=== PATIENT | female | born 1970 | race Caucasian/White ===

== ENCOUNTER 2016-11-22 16:45 | Emergency (ER) | payer OTHER ==
[2016-11-22 16:45] VITALS: BMI 22.4
--- NOTE | 2016-11-22 17:20 | C.PDOC ---
History Of Present Illness 46 year old patient, with a past medical history of osteoporosis, presents to the ED complaining of right great toe injury that occurred yesterday. Patient complains of pain to the base of the first toe. She notes a heavy object fell on it. The pain is localized and is worse with weight bearing. Patient denies any fever, numbness or weakness. R 1 TOE INJURY YEST. CO PAIN BASE FIRST TOE. HEAVY OBJECT FELL ONTO IT. LOCALIZED WORSE W WT BEAR EXAM R FOOT MILD SWELL, BRUISING BASE 1 TOE. NAIL CLEAR. NO DEFORM. +LOCAL TEND. SKIN INTACT XRAY NEG Time Seen by Provider: 11/22/16 17:04 Chief Complaint (Nursing): Lower Extremity Problem/Injury History Per: Patient History/Exam Limitations: no limitations Onset/Duration Of Symptoms: Days (yesterday) Current Symptoms Are (Timing): Still Present Severity: Mild Pain Scale Rating Of: 3 Recent travel outside of the [facility]: No - Ankle/Foot Description Of Injury: Struck With Object Currently Unable To: Bear Weight Past Medical History Reviewed: Historical Data, Nursing Documentation, Vital Signs Vital Signs: Last Vital Signs Temp 97.8 F 11/22/16 18:01 Pulse 78 11/22/16 18:01 Resp 16 11/22/16 18:01 BP 108/77 11/22/16 18:01 Pulse Ox 98 11/22/16 18:01 - Medical History PMH: Osteoporosis Family History: States: Unknown Family Hx - Social History Hx Alcohol Use: No Hx Substance Use: No - Immunization History Hx Tetanus Toxoid Vaccination: No Hx Influenza Vaccination: No Hx Pneumococcal Vaccination: No Review Of Systems Except As Marked, All Systems Reviewed And Found Negative. Constitutional: Negative for: Fever Musculoskeletal: Positive for: Foot Pain (right) Neurological: Negative for: Weakness, Numbness Physical Exam - Physical Exam Appears: Non-toxic, No Acute Distress Skin: Warm, Dry, Other (intact) Cardiovascular: Rhythm Regular Extremity: Normal ROM, No Calf Tenderness, No Deformity, Other (right foot: mild swelling; bruising at the base of the great toe, nail is clear; no deformity. localized tenderness. ) Neurological/Psych: Oriented x3, Normal Motor, Normal Sensation ED Course And Treatment O2 Sat by Pulse Oximetry: 100 (room air) Pulse Ox Interpretation: Normal - Other Rad right great toe x-ray X-Ray: Interpreted by Me (negative) Disposition Counseled Patient/Family Regarding: Studies Performed, Diagnosis, Need For Followup - Disposition Referrals: YOUR,PMD [Other] Disposition: HOME/ ROUTINE Disposition Time: 17:23 Condition: IMPROVED Instructions: Contusion in Adults (ED) - Clinical Impression Clinical Impression: Toe contusion - Scribe Statement The provider has reviewed the documentation as recorded by the Scribe Aurea Senior Provider Attestation: All medical record entries made by the Scribe were at my direction and personally dictated by me. I have reviewed the chart and agree that the record accurately reflects my personal performance of the history, physical exam, medical decision making, and the department course for this patient. I have also personally directed, reviewed, and agree with the discharge instructions and disposition. Orthopedic Care Application Of:: Toe-leila tape
--- NOTE | 2016-11-22 17:29 | RAD ---
PROCEDURE: Radiographs of the right great toe. TECHNIQUE:: AP radiograph of the right foot, with oblique and lateral view of the right great toe. COMPARISON: None. FINDINGS: BONES: No definitive evidence of acute displaced fracture nor dislocation the osseous structures appear intact. No cortical destructive changes. JOINTS: There is a minimal hallux valgus deformity with overgrowth of the head of the 1st metatarsal and mild DJD 1st MTP joint. . There is prominence of the overlying medial soft tissues at the level of the head and metatarsal and 1st MTP joint SOFT TISSUES: As above. No radiopaque foreign bodies OTHER FINDINGS: None. IMPRESSION: No evidence of acute displaced fracture nor dislocation. Minimal hallux valgus deformity, mild overgrowth head of the 1st metatarsal and mild DJD 1st MTP joint with overlying mild medial soft tissue swelling.
[2016-11-22 18:03] VITALS: BP 108/77; PULSE 78; RESP 16; TEMP 97.8
[2016-11-22 19:09] VITALS: O2SAT 100
== END 2016-11-22 18:13 | disposition home or self-care (01) ==
LOC: C.ER 16:45
DX: S90.111A Contusion of right great toe without damage to nail, initial encounter (principal); W22.8XXA Striking against or struck by other objects, initial encounter

== ENCOUNTER 2017-09-14 21:19 | Emergency (ER) | payer OTHER ==
[2017-09-14 21:19] VITALS: BMI 22.4
[2017-09-14 21:45] VITALS: BP 102/68; PULSE 78; RESP 18; TEMP 98.1; O2SAT 98
[2017-09-14 22:02] LABS: HCG,QUALITATIVE URINE NEGATIVE (NEGATIVE)
[2017-09-14 22:07] LABS: SQUAMOUS EPITHIAL 7 /hpf (0-5); URINE BACTERIA MOD (<OCC); URINE BILIRUBIN NEGATIVE (NEGATIVE); URINE BLOOD 3+ (NEGATIVE); URINE CLARITY Hazy (Clear); URINE COLOR Amber (YELLOW); URINE GLUCOSE (UA) NORMAL (Normal); URINE LEUKOCYTE ESTERASE 3+ Leu/uL (Negative); URINE PROTEIN 2+ mg/dL (NEGATIVE); URINE UROBILINOGEN NORMAL mg/dL (0.2-1.0); WBC CLUMPS MANY /hpf
--- NOTE | 2017-09-14 22:43 | C.PDOC ---
History Of Present Illness Patient reports 3 day history of dysuria which is associated urinary frequency and hematuria. The patient reports that the symptoms have slightly worsened today prompting visit. Denies fever, nausea, vomiting, back pain, diarrhea, rash , travel. Time Seen by Provider: 09/14/17 21:46 Chief Complaint (Nursing): Female Genitourinary History Per: Patient History/Exam Limitations: no limitations Onset/Duration Of Symptoms: Days (3) Current Symptoms Are (Timing): Still Present Associated Symptoms: Urinary Symptoms. denies: Fever, Chills, Nausea, Vomiting , Diarrhea, Back Pain, Other (rash) Recent travel outside of the [place]: No Abnormal Vaginal Bleeding: No Past Medical History Reviewed: Historical Data, Nursing Documentation, Vital Signs Vital Signs: Last Vital Signs Temp 98.1 F 09/14/17 21:40 Pulse 78 09/14/17 21:40 Resp 18 09/14/17 21:40 BP 102/68 09/14/17 21:40 Pulse Ox 98 09/15/17 00:03 - Medical History PMH: No Chronic Diseases, Osteoporosis Surgical History: No Surg Hx Family History: States: Unknown Family Hx - Social History Hx Alcohol Use: No Hx Substance Use: No - Immunization History Hx Tetanus Toxoid Vaccination: No Hx Influenza Vaccination: No Hx Pneumococcal Vaccination: No Review Of Systems Except As Marked, All Systems Reviewed And Found Negative. Constitutional: Negative for: Fever, Chills Gastrointestinal: Negative for: Nausea, Vomiting, Diarrhea Genitourinary: Positive for: Dysuria, Frequency, Hematuria Musculoskeletal: Negative for: Back Pain Skin: Negative for: Rash Neurological: Negative for: Weakness, Numbness Physical Exam - Physical Exam Appears: Well, Non-toxic, No Acute Distress Skin: Normal Color, Warm, Dry, No Rash Head: Atraumatic, Normacephalic Eye(s): bilateral: Normal Inspection, PERRL, EOMI Oral Mucosa: Moist Throat: No Erythema, No Exudate Neck: Normal ROM, Supple Chest: Symmetrical, No Tenderness Cardiovascular: Rhythm Regular Respiratory: Normal Breath Sounds, No Decreased Breath Sounds, No Rales, No Rhonchi, No Wheezing Gastrointestinal/Abdominal: Soft, No Tenderness, No Distention, No Guarding, No Rebound Back: No CVA Tenderness Extremity: Normal ROM, Tenderness, No Deformity, Swelling Extremity: Bilateral: Normal Color And Temperature, Normal ROM Neurological/Psych: Oriented x3, Normal Speech, Normal Cognition, Normal Sensation ED Course And Treatment O2 Sat by Pulse Oximetry: 98 (RA) Pulse Ox Interpretation: Normal Medical Decision Making Medical Decision Making: UA is found to be positive fot UTI. Administered Cipro, Motrin, and Pyridium. Ordered Urinalysis and Urine culture. on re-exam, the patient reports improvement of symtoms. Lubgs are CTA, heart is RRR. abdomen is soft, non-tender and the patient lol Toleratinmg PO well. Disposition - Disposition Referrals: Edmond Ovalles MD [Staff Provider] - Disposition Time: 22:44 Condition: GOOD Additional Instructions: TO PREVENT UTI: -DO NOT HOLD YOUR BLADDER WHEN YOU HAVE TO URINATE -MAKE SURE TO DRINK PLENTY OF WATER/CRANBERRY JUICE -MAKE SURE TO URINATE AFTER HAVING SEX -MAKE SURE TO WIPE FROM FRONT TO BACK AFTER URINATING. Follow up with the Urologist within 1-2 days without fail. Return if worsened. Prescriptions: Ciprofloxacin [Cipro] 1 tab PO BID #14 tab Ibuprofen [Motrin] 1 tab PO TID PRN #30 tab PRN Reason: Pain Phenazopyridine HCl [Pyridium] 200 mg PO TID #7 tablet Instructions: Urinary Tract Infections in Adults Forms: [facility] (Estonian) - Clinical Impression Clinical Impression: UTI (urinary tract infection) - PA / BUSINESS JOB TITLES / Resident Statement / has reviewed & agrees with the documentation as recorded. - Scribe Statement The provider has reviewed the documentation as recorded by the Sabrinaibsandy Hendrickson All medical record entries made by the Sabrinaibe were at my direction and personally dictated by me. I have reviewed the chart and agree that the record accurately reflects my personal performance of the history, physical exam, medical decision making, and the department course for this patient. I have also personally directed, reviewed, and agree with the discharge instructions and disposition.
== END 2017-09-14 22:54 | disposition home or self-care (01) ==
LOC: SUPCPDRO 21:19 → C.ER 21:19
DX: N39.0 Urinary tract infection, site not specified (principal)

== ENCOUNTER 2017-11-01 17:28 | Emergency (ER) | payer OTHER ==
[2017-11-01 17:29] VITALS: BMI 22.4
[2017-11-01 17:33] VITALS: O2SAT 100
[2017-11-01 17:55] LABS: HCG,QUALITATIVE URINE NEGATIVE (NEGATIVE)
[2017-11-01 18:00] LABS: SQUAMOUS EPITHIAL 15 /hpf (0-5); URINE BACTERIA MOD (<OCC); URINE BILIRUBIN NEGATIVE (NEGATIVE); URINE BLOOD 3+ (NEGATIVE); URINE CLARITY Hazy (Clear); URINE COLOR Yellow (YELLOW); URINE GLUCOSE (UA) NORMAL (Normal); URINE LEUKOCYTE ESTERASE 3+ Leu/uL (Negative); URINE PROTEIN 2+ mg/dL (NEGATIVE); URINE UROBILINOGEN NORMAL mg/dL (0.2-1.0); WBC CLUMPS FEW /hpf
--- NOTE | 2017-11-01 18:28 | C.PDOC ---
History Of Present Illness 47 year old female presents to the emergency department with a complaint of pain with micturition and slight blood in urine that started yesterday, 2017. Patient reports she experienced the same problem last month and was given Cipro for an urinary tract infection. Urine culture results did show sensitivity to Cipro. Patient is better but still spots blood when she wipes and describes pain is an 8/10 with micturition. Denies fever, chills, nausea, or vomiting. Time Seen by Provider: 11/01/17 17:37 Chief Complaint (Nursing): Female Genitourinary History Per: Patient History/Exam Limitations: no limitations Onset/Duration Of Symptoms: Days Current Symptoms Are (Timing): Still Present Past Medical History Reviewed: Historical Data, Nursing Documentation, Vital Signs Vital Signs: Last Vital Signs Temp 98.4 F 11/01/17 17:32 Pulse 97 H 11/01/17 17:32 Resp 20 11/01/17 17:32 BP 111/72 11/01/17 17:32 Pulse Ox 100 11/01/17 18:29 - Medical History PMH: Osteoporosis Family History: States: Unknown Family Hx - Social History Hx Alcohol Use: No Hx Substance Use: No - Immunization History Hx Tetanus Toxoid Vaccination: No Hx Influenza Vaccination: No Hx Pneumococcal Vaccination: No Review Of Systems Except As Marked, All Systems Reviewed And Found Negative. (As per HPI, otherwise negative) Constitutional: Negative for: Fever, Chills Gastrointestinal: Positive for: Abdominal Pain. Negative for: Nausea, Vomiting Genitourinary: Positive for: Dysuria, Hematuria Physical Exam - Physical Exam Appears: Well, Non-toxic, No Acute Distress Skin: Normal Color, Warm, Dry Head: Atraumatic, Normacephalic Chest: Symmetrical, No Deformity, No Tenderness Cardiovascular: Rhythm Regular, No Murmur Respiratory: Normal Breath Sounds, No Decreased Breath Sounds, No Accessory Muscle Use, No Wheezing Gastrointestinal/Abdominal: No Normal Exam, Soft, Tenderness (Mild diffuse suprapubic tenderness) Neurological/Psych: Oriented x3, Normal Speech Gait: Steady ED Course And Treatment O2 Sat by Pulse Oximetry: 100 (RA) Pulse Ox Interpretation: Normal Medical Decision Making Medical Decision Making: Time: 1735 Motrin 600 mg PO Pyridium 200 mg PO Urine C&S HCG, qualitative Urine Urinalysis reevaluation Time: 1800 --UA positive for UTI. Will give another course of Cipro. Time: 1826 --Patient is medically clear and ready for discharge. Given Rx for Cipro, Motrin 600 mg and Pyridium 200 mg. Advised to follow up with Dr. Edmond Ovalles MD. Clinical Impression: Urinary tract infection in Adults Disposition - Disposition Referrals: Edmond Ovalles MD [Staff Provider] - Disposition: HOME/ ROUTINE Disposition Time: 18:26 Condition: STABLE Prescriptions: Ciprofloxacin [Cipro] 1 tab PO BID #14 tab Ibuprofen [Motrin] 600 mg PO TID #15 tab Phenazopyridine [Pyridium] 200 mg PO BID #6 tab Instructions: Urinary Tract Infections in Adults Forms: [facility] (Spanish), General Discharge Instructions - POA Present On Arrival: None - Clinical Impression Clinical Impression: UTI (urinary tract infection) - Scribe Statement Scribe Attestation: Documented by Bernadette Peck, acting as a scribe for Wendy Zaragoza MD. ~ Provider Scribe Attestation: All medical record entries made by the Scribe were at my direction and personally dictated by me. I have reviewed the chart and agree that the record accurately reflects my personal performance of the history, physical exam, medical decision making, and the department course for this patient. I have also personally directed, reviewed, and agree with the discharge instructions and disposition. ~
[2017-11-01 18:49] VITALS: BP 115/70; PULSE 84; RESP 18; TEMP 98.5
== END 2017-11-01 18:49 | disposition home or self-care (01) ==
LOC: C.ER 17:28
DX: N39.0 Urinary tract infection, site not specified (principal)

== ENCOUNTER 2018-05-05 13:22 | Emergency (ER) | payer OTHER ==
[2018-05-05 13:22] VITALS: BMI 22.4
[2018-05-05 14:05] VITALS: BP 98/60; PULSE 95; RESP 20; TEMP 98.8; O2SAT 98
--- NOTE | 2018-05-05 15:03 | C.PDOC ---
History Of Present Illness The patient reports pain to the right knee over the past 1 week. Patient reports she may have injured her knee trying to grab an item and came and twisted it. The patient reports that she has been ambulatory on the knee but pain is worsened with walking. Denies numbness, weakness, rash. Time Seen by Provider: 05/05/18 14:57 Chief Complaint (Nursing): Lower Extremity Problem/Injury History Per: Patient History/Exam Limitations: no limitations Onset/Duration Of Symptoms: Persistent Current Symptoms Are (Timing): Still Present Pain Scale Rating Of: 6 Recent travel outside of the [place]: No Past Medical History Vital Signs: Last Vital Signs Temp 98.8 F 05/05/18 14:03 Pulse 95 H 05/05/18 14:03 Resp 20 05/05/18 14:03 BP 98/60 L 05/05/18 14:03 Pulse Ox 98 05/05/18 14:03 - Medical History PMH: Osteoporosis Family History: States: Unknown Family Hx - Social History Hx Alcohol Use: No Hx Substance Use: No - Immunization History Hx Tetanus Toxoid Vaccination: No Hx Influenza Vaccination: No Hx Pneumococcal Vaccination: No Review Of Systems Constitutional: Negative for: Fever, Weakness ENT: Negative for: Ear Pain Cardiovascular: Negative for: Chest Pain Gastrointestinal: Negative for: Vomiting, Abdominal Pain Genitourinary: Negative for: Dysuria, Frequency Musculoskeletal: Positive for: Other (knee pain) Skin: Negative for: Rash, Bruising Neurological: Negative for: Weakness, Numbness Physical Exam - Physical Exam Appears: Non-toxic, No Acute Distress Skin: Normal Color, Warm, No Rash Head: Atraumatic, Normacephalic Eye(s): bilateral: Normal Inspection Oral Mucosa: Moist Neck: Normal ROM, Supple Extremity: Normal ROM, Capillary Refill (< 2 sec), No Deformity, No Swelling, Other ((+) Right medial knee tenderness) Pulses: Left Dorsalis Pedis: Normal, Right Dorsalis Pedis: Normal Neurological/Psych: Oriented x3, Normal Motor, Normal Sensation Gait: Steady ED Course And Treatment O2 Sat by Pulse Oximetry: 98 (on RA) Pulse Ox Interpretation: Normal Medical Decision Making Medical Decision Making: Xrays are negative for fracture or dislocation. 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 Disposition - Disposition Referrals: Edinson Gamez MD [Staff Provider] - Disposition: HOME/ ROUTINE Disposition Time: 15:35 Condition: STABLE Additional Instructions: Follow up with the Orthopedist within 2-3 days. Return if worsened. Prescriptions: Naproxen [Naprosyn] 500 mg PO BID #20 tab Instructions: Knee Sprain (DC) Forms: [facility] (Pashto) - Clinical Impression Clinical Impression: Knee sprain
[2018-05-05] MEDS ORDERED: Naproxen 550 mg Tab PO STA (15:34)
--- NOTE | 2018-05-05 15:39 | RAD ---
Date of service: 05/05/2018 PROCEDURE: Right Knee Radiographs. HISTORY: KNEE INJURY, PAIN TO MEDIAL ASPECT COMPARISON: None. FINDINGS: BONES: Normal. No fracture. JOINTS: Normal. No osteoarthritis. JOINT EFFUSION: Suspect trace joint effusion OTHER FINDINGS: None. IMPRESSION: No evidence of acute displaced fracture nor dislocation. Trace joint effusion.
[2018-05-05] MEDS ORDERED: Naproxen 550 mg Tab PO ONE (15:55)
== END 2018-05-05 15:58 | disposition home or self-care (01) ==
LOC: C.ER 13:22
DX: S83.91XA Sprain of unspecified site of right knee, initial encounter (principal); X50.1XXA Overexertion from prolonged static or awkward postures, initial encounter; M81.0 Age-related osteoporosis without current pathological fracture

== ENCOUNTER 2018-05-30 11:23 | Day surgery (SDC) | payer OTHER ==
[2018-05-28 08:35] VITALS: BMI 25.2
[2018-05-30] MEDS ORDERED: Midazolam 2 MG/2 ML VIAL ONE (14:31)
[2018-05-30] MEDS ORDERED: Lidocaine 2% Jelly (Uro-Jet) ONE (14:32)
[2018-05-30] MEDS ORDERED: Iohexol 240 (50 ml) ONE (14:32)
[2018-05-30] MEDS ORDERED: cefTRIAXone 1 gm 1 GM/100 ML BAG IVPB ONE (14:32)
[2018-05-30] MEDS ORDERED: Propofol 10 mg/ml Inj (20 ML) ONE (14:32)
[2018-05-30] MEDS ORDERED: Oxycodone/Acetaminophen 5/325 mg Tab PO PRN (15:08)
[2018-05-30] MEDS ORDERED: HYDROmorphone 0.5 mg/0.5 ml ISec IVP PRN (15:09)
[2018-05-30 16:15] VITALS: RESP 18; O2SAT 100
[2018-05-30 17:16] VITALS: BP 103/59; PULSE 73; TEMP 97.6
--- NOTE | 2018-05-31 12:37 | RAD ---
Date of service: 05/30/2018 HISTORY: GROSS HEMATURIA COMPARISON: CT abdomen pelvis without/with IV contrast performed 12/05/17 FINDINGS: BOWEL: Nonobstructive bowel gas pattern. Moderate constipation. BONES: No acute osseous abnormality is detected. OTHER FINDINGS: None. IMPRESSION: Moderate constipation. No coarse large calcifications evident in the expected location of the renal shadows/ureteral course however evaluation limited due to overlying bowel gas/fecal material.
--- NOTE | 2018-06-03 12:13 | RAD ---
Date of service: 05/30/2018 PROCEDURE: Intraoperative Fluoroscopy. HISTORY: GROSS HEMATURIA FINDINGS: Fluoroscopic assistance was provided for cystogram bilateral retrograde study. Please refer to the operative report from CLIFTON Brown DR, MD. Total fluoroscopic time (continuous mode) utilized during the procedure 3.5 seconds. Dose report: DLP [id number] (mGy/m2)
--- NOTE | 2018-06-05 04:44 | OP ---
PROCEDURE DATE: 05/30/2018 PREOPERATIVE DIAGNOSES: Hematuria, voiding dysfunction, nocturia, and mild voiding complaints. POSTOPERATIVE DIAGNOSES: Hematuria, voiding dysfunction, nocturia, and mild voiding complaints. PROCEDURES: Exam under anesthesia, cystoscopy, retrograde pyelogram. SURGEON: Curry Ovalles MD BLOOD LOSS: Less than 5 mL. COMPLICATIONS: No complications. FINDINGS: 1. Normal bladder mucosa. 2. Normal upper tracts. 3. Films were submitted for the radiologist. There is no appreciable abnormality appreciated. INDICATIONS: See the history and physical. UROLOGY OPERATIVE FINDINGS: As mentioned. DESCRIPTION OF PROCEDURE: After obtaining the informed consent, the patient was placed on the table. Routine monitors were placed. Time-out was called to confirm patient and positioning. Antibiotic prophylaxis was used. Venodyne boots were inserted. The cystoscope was introduced via urethra. We inspected the bladder carefully. The ureteral orifices show clear efflux. No bladder mucosal abnormalities. We inspected the bladder with 30-degree and 70-degree lenses. We did a retrograde pyelogram bilaterally. The films were submitted to the radiologist, but I do not see any gross abnormalities. The bladder was emptied and cystoscope was removed. Exam under anesthesia revealed normal external genitalia. No pelvic or rectal mass. The patient tolerated the procedure without complication. ADDENDUM: urine pathology pending and further plans will follow. Curry Ovalles MD
--- NOTE | 2018-06-05 08:05 | HP ---
UROLOGY HISTORY AND PHYSICAL REASON FOR ADMISSION: Workup for hematuria. HISTORY OF PRESENT ILLNESS: This is a very pleasant lady who is here now for workup for a cystoscopy, for microhematuria. PAST MEDICAL AND SURGICAL HISTORY: Listed in the chart. No history of RI, CVA. MEDICATIONS: See chart. ALLERGIES: SEE CHART. PHYSICAL EXAMINATION: GENERAL: She is in no apparent distress. VITAL SIGNS: Within normal limits and included in the chart. LUNGS: Clear. ABDOMEN: Normal S1 and S2. Soft and nontender. No flank mass appreciated. PELVIS AND RECTAL: No pelvic or rectal masses. DIAGNOSIS: Hematuria and voiding dysfunction. PLAN: The plan is as follows: We discussed the options of workup, location, office here. The patient preferred anesthesia. We discussed the risks, benefits, treatment alternatives . 1. Plan for antibiotic prophylaxis. 2. Cystoscopy, possible biopsy. 3. Possible retrograde pyelogram. Further plans will follow. Curry Ovalles MD
== END 2018-05-30 17:20 | disposition home or self-care (01) ==
LOC: C.SDS 11:23
PROVIDERS: ATTEND Urology
DX: R31.0 Gross hematuria (principal); R35.1 Nocturia
CPT/HCPCS: 52005; 74018; C1758; J0696; Q9966

== ENCOUNTER 2018-07-29 13:31 | Emergency (ER) | payer OTHER ==
[2018-07-29 13:31] VITALS: BMI 25.2
[2018-07-29 13:51] VITALS: RESP 18
[2018-07-29 15:35] VITALS: BP 101/70; PULSE 95; TEMP 99.4; O2SAT 99
--- NOTE | 2018-07-29 16:32 | C.PDOC ---
History Of Present Illness 47 year old female presents to the ED for evaluation of flu-like symptoms which began 2 days ago. She reports fever, dry cough and generalized body aches. Patient did not receive the flu vaccination this year. She denies vomiting, diarrhea. Time Seen by Provider: 07/29/18 14:09 Chief Complaint (Nursing): Flu-like Symptoms History Per: Patient History/Exam Limitations: no limitations Onset/Duration Of Symptoms: Days (2) Current Symptoms Are (Timing): Still Present Location Of Pain: Diffuse Myalgias Associated Symptoms: Fever, Cough. denies: Sputum, Vomiting, Diarrhea Additional History Per: Patient Past Medical History Reviewed: Historical Data, Nursing Documentation, Vital Signs Vital Signs: Last Vital Signs Temp 99.4 F 07/29/18 15:30 Pulse 95 H 07/29/18 15:30 Resp 18 07/29/18 15:30 BP 101/70 07/29/18 15:30 Pulse Ox 99 07/29/18 15:30 - Medical History PMH: Depression, Osteoporosis, Sleep Apnea (uses cpap) Denies: Chronic Kidney Disease Surgical History: Endoscopy Family History: States: Unknown Family Hx - Social History Hx Alcohol Use: No Hx Substance Use: No - Immunization History Hx Tetanus Toxoid Vaccination: No Hx Influenza Vaccination: No Hx Pneumococcal Vaccination: No Review Of Systems Constitutional: Positive for: Fever Respiratory: Positive for: Cough. Negative for: Sputum Gastrointestinal: Negative for: Vomiting, Diarrhea Musculoskeletal: Positive for: Other (generalized body aches ) Physical Exam - Physical Exam Appears: Non-toxic, No Acute Distress Skin: Normal Color, Warm, Dry Head: Atraumatic, Normacephalic Eye(s): bilateral: Normal Inspection Oral Mucosa: Moist Neck: Supple Chest: Symmetrical, No Deformity, No Tenderness Cardiovascular: Rhythm Regular, No Murmur Respiratory: Normal Breath Sounds, No Rales, No Rhonchi, No Wheezing Extremity: Normal ROM, Capillary Refill (less than 2 seconds ) Neurological/Psych: Oriented x3, Normal Speech, Normal Cognition ED Course And Treatment O2 Sat by Pulse Oximetry: 99 (on RA) Pulse Ox Interpretation: Normal Medical Decision Making Medical Decision Making: Progress: CXR and EKG ordered and reviewed. Disposition - Disposition Referrals: Sam Ramos MD [Non-Staff] - Disposition: HOME/ ROUTINE Disposition Time: 15:15 Condition: IMPROVED Additional Instructions: KIMBER MCLEOD, thank you for letting us take care of you today. The emergency medical care you received today was directed at your acute symptoms. If you were prescribed any medication, please fill it and take as directed. It may take several days for your symptoms to resolve. Return to the Emergency Department if your symptoms worsen, do not improve, or if you have any other problems. Please contact your doctor or call one of the physicians/clinics you have been referred to that are listed on the Patient Visit Information form that is included in your discharge packet. Bring any paperwork you were given at discharge with you along with any medications you are taking to your follow up visit. Our treatment cannot replace ongoing medical care by a primary care provi topher outside of the emergency department. Thank you for allowing the [facility] team to be part of your care today. Drink fluids to maintain your hydration and follow up with your primary care doctor in 3-4 days for re-evaluation and further management. Prescriptions: Oseltamivir Phosphate [Tamiflu] 75 mg PO BID #10 capsule Instructions: Viral Syndrome (DC) Forms: [facility] (Sami) - Clinical Impression Clinical Impression: Influenza-like illness - Scribe Statement The provider has reviewed the documentation as recorded by the Scribe (Dilcia Senior) Provider Attestation: All medical record entries made by the Scribe were at my direction and personally dictated by me. I have reviewed the chart and agree that the record accurately reflects my personal performance of the history, physical exam, medical decision making, and the department course for this patient. I have also personally directed, reviewed, and agree with the discharge instructions and disposition.
--- NOTE | 2018-07-30 20:23 | CARD ---
APPROVED REPORT Date of service: 07/29/2018 EKG Measurement Heart [id number] <Conclusion> Normal sinus rhythm Normal ECG
== END 2018-07-29 15:30 | disposition home or self-care (01) ==
LOC: C.ER 13:31
DX: J11.1 Influenza due to unidentified influenza virus with other respiratory manifestations (principal)